=== PATIENT | female | born 1965 | race Native Hawaiian/Other Pacific Islander ===

== ENCOUNTER 2016-12-17 21:56 | Emergency (ER) | payer MEDICAID ==
[2016-12-17 21:56] VITALS: BMI 27.7
--- NOTE | 2016-12-17 23:10 | C.PDOC ---
History Of Present Illness 50 y/o F c PMHx HTN on Losartan and Lopressor p/w headache since this evening. Headache is diffuse, constant, moderate in intensity. She took no medications for it. She denies fever, stiff neck, vision change, nausea, vomiting, numbness , weakness. She denies chest pain, dyspnea, diaphoresis. She states she took her BP because of the headache and it was elevated, and she thinks her BP is causing the headache. Time Seen by Provider: 12/17/16 22:13 Chief Complaint (Nursing): High Blood Pressure Past Medical History Vital Signs: Last Vital Signs Temp 98.6 F 12/17/16 22:02 Pulse 89 12/17/16 22:13 Resp 22 12/17/16 22:02 BP 166/100 H 12/17/16 22:13 Pulse Ox 98 12/17/16 23:54 - Medical History PMH: HTN, Hypercholesterolemia, Migraine Surgical History: Cholecystectomy Family History: States: Unknown Family Hx - Social History Hx Alcohol Use: No Hx Substance Use: No - Immunization History Hx Tetanus Toxoid Vaccination: No Hx Influenza Vaccination: No Hx Pneumococcal Vaccination: No Review Of Systems Except As Marked, All Systems Reviewed And Found Negative. Constitutional: Negative for: Fever Cardiovascular: Negative for: Chest Pain Physical Exam - Physical Exam Additional Physical Exam Comments: Constitutional: No acute distress. Head: Normocephalic. Atraumatic. Eyes: PERRL. ENT: Moist mucous membranes. Neck: Supple. Cardiovascular: Regular rate. Radial pulse 2+ bilaterally. Chest: No tenderness. Respiratory: Clear to auscultation bilaterally. GI: Soft. Nontender. Nondistended. Back: No CVA tenderness. Musculoskeletal: No tenderness or swelling of extremities. Skin: No rash. Neurologic: Oriented x 3. CN II to XII intact. Motor 5/5 x 4. Sensation to light touch intact bilaterally. FTN normal. Steady gait. ED Course And Treatment O2 Sat by Pulse Oximetry: 98 Medical Decision Making Medical Decision Making: Patient with previous visit in this ER for headache with associated HTN. CT Head at that time was performed and negative. Neuro exam normal and not clinically consistent with meningitis, SAH, temporal arteritis. Will treat with analgesia and observe in ER. Patient with improved headache. BP 130s/84 at reassessment. Will discharge home , f/u PMD, return to ER for any worsening pain, stiff neck, fever, vision change , neuro deficit, or any other problem. Disposition - Disposition Disposition: HOME/ ROUTINE Disposition Time: 00:02 Condition: STABLE Instructions: Acute Headache (ED), Hypertension (ED) - Clinical Impression Clinical Impression: Headache - Scribe Statement The provider has reviewed the documentation as recorded by the Scribe (Chantal Varghese) Provider Attestation: All medical record entries made by the Scribe were at my direction and personally dictated by me. I have reviewed the chart and agree that the record accurately reflects my personal performance of the history, physical exam, medical decision making, and the department course for this patient. I have also personally directed, reviewed, and agree with the discharge instructions and disposition.
[2016-12-18 00:10] VITALS: BP 138/83; PULSE 79; RESP 18; TEMP 97.8; O2SAT 99
== END 2016-12-18 00:11 | disposition home or self-care (01) ==
LOC: C.ER 21:56
DX: R51 Headache (principal); I10 Essential (primary) hypertension
CPT/HCPCS: 96374; 99285; J1885

== ENCOUNTER 2017-04-28 05:29 | Emergency (ER) | payer MEDICAID ==
[2017-04-28 05:29] VITALS: BMI 29.5
[2017-04-28] MEDS ORDERED: Sodium Chloride 0.9% 1,000 ML IV ONE (06:02)
[2017-04-28] MEDS ORDERED: Sodium Chloride 0.9% 1,000 ML ONE (06:16)
[2017-04-28 06:18] LABS: BASO # 0.1 K/uL (0.0-0.2); BASO % 1.2 % (0.0-2.0); EOS # 0.3 K/uL (0.0-0.7); EOS % 3.3 % (0.0-4.0); HEMATOCRIT 37.9 % (34.0-47.0); LYMPH # 1.4 K/uL (1.0-4.3); LYMPH % 16.5 % (20.0-40.0); MEAN CELL VOLUME 81.1 fL (81.0-99.0); MEAN CORPUSCULAR HEMOGLOBIN 26.7 pg (27.0-31.0); MEAN PLATELET VOLUME 8.4 fL (7.2-11.7); MONO # 0.5 K/uL (0.0-0.8); MONO % 6.2 % (0.0-10.0); RED CELL DISTRIBUTION WIDTH 13.7 % (11.5-14.5); WHITE BLOOD COUNT 8.3 K/uL (4.8-10.8)
--- NOTE | 2017-04-28 06:19 | C.PDOC ---
History Of Present Illness 51 year old female who presents to the ER with a complaint of dizziness that she describes as a spinning sensation and 1 episode of vomiting after getting out of bed this morning, associated with a mild headache. Denies palpitations, chest pain, weakness, or URI symptoms. Time Seen by Provider: 04/28/17 05:58 Chief Complaint (Nursing): Dizziness/Lightheaded History Per: Patient History/Exam Limitations: no limitations Onset/Duration Of Symptoms: Mins, Sudden Onset Current Symptoms Are (Timing): Still Present Activity At Onset Of Symptoms: Had Just Stood up Seizure Or Post-ictal Symptoms: None Possible Causative Factor(s): Other (Not known) Fall Associated With With Symptoms: No Recent travel outside of the [place]: No Past Medical History Reviewed: Historical Data, Nursing Documentation, Vital Signs Vital Signs: Last Vital Signs Temp 97.8 F 04/28/17 05:39 Pulse 67 04/28/17 05:39 Resp 16 04/28/17 05:39 BP 159/92 H 04/28/17 05:39 Pulse Ox 97 04/28/17 07:01 - Medical History PMH: HTN, Hypercholesterolemia, Migraine Surgical History: Cholecystectomy Family History: States: Unknown Family Hx - Social History Hx Alcohol Use: No Hx Substance Use: No - Immunization History Hx Tetanus Toxoid Vaccination: No Hx Influenza Vaccination: No Hx Pneumococcal Vaccination: No Review Of Systems Constitutional: Negative for: Fever, Chills Cardiovascular: Negative for: Chest Pain, Palpitations Respiratory: Negative for: Shortness of Breath Gastrointestinal: Positive for: Vomiting. Negative for: Abdominal Pain, Diarrhea Neurological: Positive for: Headache, Dizziness. Negative for: Weakness, Numbness Physical Exam - Physical Exam Appears: Non-toxic Skin: Warm, Dry, Pale Head: Atraumatic, Normacephalic Eye(s): bilateral: Normal Inspection, PERRL, EOMI Oral Mucosa: Moist Neck: Normal, Supple Chest: Symmetrical, No Tenderness Cardiovascular: Rhythm Regular, No Murmur Respiratory: Normal Breath Sounds, No Rales, No Rhonchi, No Wheezing Gastrointestinal/Abdominal: Soft, No Tenderness Extremity: Normal ROM (x4), No Tenderness, No Deformity, No Swelling Neurological/Psych: Oriented x3, Normal Speech, Normal Cognition, Normal Motor, Normal Sensation, Other (No focal deficits) Gait: Steady ED Course And Treatment - Laboratory Results Result Diagrams: 04/28/17 06:15 O2 Sat by Pulse Oximetry: 97 (Room air) Pulse Ox Interpretation: Normal Progress Note: EKG, urinalysis, blood work, and head CT ordered. Reglan and IV fluids administered. Disposition Counseled Patient/Family Regarding: Diagnosis - Disposition Disposition: HOME/ ROUTINE Disposition Time: 07:02 Condition: STABLE Forms: [facility] ([place]) - Clinical Impression Clinical Impression: Dizziness - Scribe Statement The provider has reviewed the documentation as recorded by the Scribe Petar Arora All medical record entries made by the Scribe were at my direction and personally dictated by me. I have reviewed the chart and agree that the record accurately reflects my personal performance of the history, physical exam, medical decision making, and the department course for this patient. I have also personally directed, reviewed, and agree with the discharge instructions and disposition. Physician Patient Turnover Patient Signed Over To: Robyn Cabrera Handoff Comments: pending labs and CT
[2017-04-28 07:37] LABS: CHLORIDE 108 mmol/L (98-107); POTASSIUM 3.8 mmol/L (3.6-5.2); SODIUM 142 mmol/L (132-148)
[2017-04-28 07:39] LABS: ALB/GLOB RATIO 1.1 (1.0-2.1); AST/SGOT 21 U/L (14-36); BILIRUBIN,TOTAL 0.6 mg/dL (0.2-1.3); CARBON DIOXIDE 24 mmol/L (22-30); GFR AFRICAN-AMERICAN > 60
[2017-04-28 07:40] LABS: ALKALINE PHOSPHATASE 57 U/L (38-126); ALT/SGPT 26 U/L (9-52); BLOOD UREA NITROGEN 13 mg/dL (7-17); CALCIUM 7.9 mg/dl (8.6-10.4); GLUCOSE,RANDOM 125 mg/dL (65-105)
--- NOTE | 2017-04-28 08:20 | CT ---
PROCEDURE: CT HEAD WITHOUT CONTRAST. HISTORY: dizziness, headache COMPARISON: None available. TECHNIQUE: Axial computed tomography images were obtained through the head/brain without intravenous contrast. Radiation dose: Total exam DLP = 802.73 mGy-cm. This CT exam was performed using one or more of the following dose reduction techniques: Automated exposure control, adjustment of the mA and/or kV according to patient size, and/or use of iterative reconstruction technique. FINDINGS: HEMORRHAGE: No intracranial hemorrhage. BRAIN: No mass effect or edema. The gallegos-white matter differentiation appears intact. Please note that MRI with diffusion imaging is more sensitive in the detection of acute ischemic event. VENTRICLES: No hydrocephalus. CALVARIUM: Unremarkable. PARANASAL SINUSES: Unremarkable as visualized. No significant inflammatory changes. MASTOID AIR CELLS: Unremarkable as visualized. No inflammatory changes. OTHER FINDINGS: None. IMPRESSION: No acute intracranial pathology identified.
[2017-04-28 08:47] VITALS: BP 125/73; PULSE 75; RESP 20; TEMP 98.1; O2SAT 99
--- NOTE | 2017-04-30 09:23 | CARD ---
APPROVED REPORT EKG Measurement Heart [id number] <Conclusion> Normal sinus rhythm Normal ECG
== END 2017-04-28 09:31 | disposition home or self-care (01) ==
LOC: C.ER 05:29
DX: R42 Dizziness and giddiness (principal)
CPT/HCPCS: 36415; 70450; 80053; 84703; 85025; 93005; 96374; 99285; J2765; J7040

== ENCOUNTER 2019-01-12 10:34 | Outpatient (CLI) | payer MEDICAID | END 2019-01-12 10:35 | disposition home or self-care (01) | LOC: C.MAMMO 10:34 | DX: Z12.31 Encounter for screening mammogram for malignant neoplasm of breast (principal) ==